=== PATIENT | male | born 1985 | race Caucasian/White ===

== ENCOUNTER 2024-08-15 07:19 | Day surgery (SDC) | payer OTHER ==
[~2024-08-15 07:19] MED LIST: Sodium Chloride 0.9% 10 ML Syringe FLUSH PRN; Sodium Chloride 0.9% 10 ML Syringe FLUSH SCH
[2024-08-15] MEDS ORDERED: Propofol 200 MG/20 ML SDV ONE ×2 (07:39→08:25)
[2024-08-15] MEDS: Lactated Ringers 1,000 ML IV SCH (07:40)
[2024-08-15] MEDS ORDERED: Midazolam 1 MG/ML 2 ML SDV ONE (08:18)
[2024-08-15] MEDS ORDERED: fentaNYL 100 MCG/2 ML SDV ONE (08:21)
== END 2024-08-15 09:48 | disposition home or self-care (01) ==
LOC: JD.SDS 07:19
PROVIDERS: ATTEND Surgery
DX: K29.50 Unspecified chronic gastritis without bleeding (principal); D64.9 Anemia, unspecified
CPT/HCPCS: 43239; 45378; J2250; J2704; J3010; J7120; 00813